=== PATIENT | female | born 1955 | race Caucasian/White ===

== ENCOUNTER 2020-01-15 09:22 | Emergency (ER) | payer OTHER ==
[2020-01-15 09:38] VITALS: TEMP 98.3; BMI 33.6
[2020-01-15] MEDS ORDERED: ACETAMINOPHEN 325 MG TABLET (FP) PO ONE (10:30)
[2020-01-15 10:42] LABS: BASO % 1.3 % (0-2.0); HEMATOCRIT 42.3 % (32.4-45.2); HEMOGLOBIN 14.1 GM/dL (10.7-15.3); LYMPH % 26.8 % (8-40); MCHC 33.4 g/dl (32.0-36.0); MEAN CELL VOLUME 92.7 fl (80-96); MEAN PLT VOLUME 8.2 fl (7.5-11.1); MONO % 8.7 % (3.8-10.2); NEUT % 57.2 % (42.8-82.8); PLATELET COUNT 238 K/MM3 (134-434); RBC 4.56 M/mm3 (3.60-5.2); RDW 13.6 % (11.6-15.6); WHITE BLOOD COUNT 4.7 K/mm3 (4.0-10.0)
[2020-01-15] MEDS ORDERED: ACETAMINOPHEN INJECTION 100 ML IVPB ONE (10:44)
[2020-01-15] MEDS ORDERED: ACETAMINOPHEN 1000 MG/100 ML VIAL (NON FORMULARY) IVPB ONE (10:47)
[2020-01-15 10:48] LABS: INR 1.02 (0.83-1.09); PROTHROMBIN TIME (PATIENT) 12.3 SEC (9.7-13.0)
[2020-01-15 11:12] LABS: CHLORIDE 110 mmol/L (98-107); POTASSIUM 4.3 mmol/L (3.5-5.1); SODIUM 141 mmol/L (136-145)
[2020-01-15 11:14] LABS: ALBUMIN 4.1 g/dl (3.4-5.0); ANION GAP 5 MMOL/L (8-16); CALCIUM 9.1 mg/dL (8.5-10.1); CO2 26 mmol/L (21-32)
[2020-01-15 11:15] LABS: BLOOD UREA NITROGEN 16.3 mg/dL (7-18); GLUCOSE,RANDOM 92 mg/dL (74-106)
[2020-01-15 11:18] LABS: CREATININE 0.9 mg/dL (0.55-1.3); SGOT/AST 20 U/L (15-37); SGPT/ALT 28 U/L (13-61)
[2020-01-15 11:19] LABS: BILIRUBIN,TOTAL 0.7 mg/dL (0.2-1)
[2020-01-15 11:20] LABS: ALK PHOS 59 U/L (45-117)
[2020-01-15 11:52] LABS: N-TERMINAL BNP 115.8 pg/ml (5-125)
[2020-01-15 12:03] VITALS: BP 122/84; PULSE 53
== END 2020-01-15 12:07 | disposition left against medical advice (07) ==
LOC: JER 09:22
DX: R07.9 Chest pain, unspecified (principal); R42 Dizziness and giddiness
CPT/HCPCS: 36415; 71045-TC-FY; 80053; 82550; 83880; 84484; 85025; 85379; 85610; 93005; 93010; 99285-25; J0131